=== PATIENT | male | born 1965 | race Caucasian/White ===

== ENCOUNTER → 2019-12-27 14:34 | Outpatient (BNVA) | payer OTHER, SELFPAY | PROVIDERS: Visit Provider Internal Medicine | DX: L23.7 Allergic contact dermatitis due to plants, except food (principal) | CPT/HCPCS: 99213 ==

== ENCOUNTER 2020-03-24 09:12 | Outpatient (REF) | payer OTHER, SELFPAY ==
[2020-03-24 10:01] LABS: MANUAL DIFF FLAG NO
[2020-03-24 10:03] LABS: Basophils Percent Auto 0.8 % (0-2); Eosinophils Absolute Auto 0.2 X10*3/uL (0.0-0.4); Hematocrit 38.5 % (42-52); Hemoglobin 12.8 g/dl (14.0-18.0); Imm Gran Abs Auto 0.01 X10*3/uL (0.00-0.03); Imm Gran Pct Auto 0.3 % (0.0-0.4); Lymphocytes Absolute Auto 1.4 X10*3/uL (1.2-4.9); Lymphocytes Percent Auto 37.8 % (20-40); Mean Corpuscular HGB Conc 33.2 g/dl (31.0-36.0); Mean Corpuscular Hemoglobin 33.7 pg (27.0-33.0); Mean Corpuscular Volume 101.3 fL (80-98); Mean Platelet Volume 10.4 fL (9.4-12.4); Monocytes Absolute Auto 0.3 X10*3/uL (0.1-1.2); Monocytes Percent Auto 8.7 % (2-11); Neutrophils Absolute Auto 1.8 X10*3/uL (2.0-8.3); Neutrophils Percent Auto 48.4 % (45-73); Platelet Count 198 X10*3/uL (160-400); Red Cell Distribution Width 12.9 % (11.0-16.0); White Blood Count 3.8 X10*3/uL (4.8-10.8)
[2020-03-24 10:09] LABS: Estimated Average Glucose 103 mg/dL; Hemoglobin A1c % 5.2 %
[2020-03-24 10:32] LABS: Alanine Aminotransferase 13 U/L (0-40); Albumin Level 4.2 g/dL (3.5-5.0); Alkaline Phosphatase 47 U/L (39-117); Anion Gap 10 (12-20); Aspartate Amino Transferase 17 U/L (5-37); Bilirubin Total 0.5 mg/dL (0.0-1.0); Blood Urea Nitrogen 20 mg/dL (9-16); Calcium 9.2 mg/dL (8.4-10.2); Carbon Dioxide 29 mmol/L (22-29); Chloride 107 mmol/L (96-108); Cholesterol 208 mg/dL; Estimated Glomerular Filt Rate > 60; Glucose Fasting 92 mg/dL (60-99); HDL Cholesterol 91 mg/dL; LDL Cholesterol Calculated 106 mg/dl; Potassium 4.2 mmol/l (3.3-5.1); Sodium 142 mmol/L (135-145); Total Protein 6.7 g/dL (6.5-8.0); Triglycerides 57 mg/dL
[2020-03-24 10:49] LABS: Prostate Specific Antigen Scr 1.01 ng/mL (<0.05-4.0); TSH reflex Free T4 0.89 mIU/mL (0.32-4.0)
== END 2020-03-24 09:13 | disposition home or self-care (01) ==
LOC: HO.LAB 09:12
PROVIDERS: Visit Provider Physician Assistant
DX: Z13.29 Encounter for screening for other suspected endocrine disorder (principal); Z12.5 Encounter for screening for malignant neoplasm of prostate; Z13.220 Encounter for screening for lipoid disorders; Z13.1 Encounter for screening for diabetes mellitus
CPT/HCPCS: 36415; 80053; 80061; 83036; 84153; 84443; 85025

== ENCOUNTER 2020-05-08 06:18 | Outpatient (REF) | payer OTHER, SELFPAY ==
[2020-05-08 07:11] LABS: Hematocrit 37.7 % (42-52); Hemoglobin 12.7 g/dl (14.0-18.0); Mean Corpuscular HGB Conc 33.7 g/dl (31.0-36.0); Mean Corpuscular Hemoglobin 33.7 pg (27.0-33.0); Mean Platelet Volume 10.2 fL (9.4-12.4); Platelet Count 180 X10*3/uL (160-400); Red Blood Count 3.77 X10*6/uL (4.60-5.80); Red Cell Distribution Width 12.6 % (11.0-16.0); White Blood Count 3.6 X10*3/uL (4.8-10.8)
[2020-05-08 08:08] LABS: Folate 14.5 ng/mL (> or = 4.0); Vitamin B12 277 pg/mL (200-900)
== END 2020-05-08 06:19 | disposition home or self-care (01) ==
LOC: HO.LAB 06:18
PROVIDERS: Visit Provider Physician Assistant
DX: I10 Essential (primary) hypertension (principal); D53.9 Nutritional anemia, unspecified
CPT/HCPCS: 36415; 82607; 82746; 85027

== ENCOUNTER 2020-07-18 12:54 | Outpatient (REF) | payer OTHER, SELFPAY ==
--- NOTE | 2020-07-18 15:32 | MHC.AU.ANR ---
Adult Audiological Evaluation Date of Visit: 07/18/20 Reason for Appointment: Audiological evaluation due to concern for decreased hearing. Patient reports that he has been having trouble with wax in his right ear and feels this may be to blame for his decreased hearing. He feels that he hears well most of the time. Does patient feel they have a hearing loss?: Unsure Has hearing been tested previously?: No Hearing Handicap Inventory: HHIE SCORE: 0 Based on HHIE score, patient has: No perceived hearing handicap Ear History: History of Ear Wax Buildup: Both Ears Medical History: Medical History: Headache, Migraines Otoscopy: Right Ear: Occluding cerumen. Removed some cerumen with suction, but not able to complete removal as patient was very jumpy and could not tolerate removal. Left Ear: Unremarkable Tympanometry: Tympanometry performed due to: To determine if cerumen blockage is fully occluding canal(s) Right Ear: Normal Middle Ear System (Type A) Left Ear: Normal Middle Ear System (Type A) Hearing Evaluation: Transducer(s) Used: Circumaural Headphones, Bone Conduction Method: Conventional Audiometry Stimuli Used: Pure Tones Right Ear: Description of Hearing: Mild hearing loss at 250 Hz, mild to moderate mixed hearing loss from 500-750 Hz, and a moderate sloping to profound sensorineural hearing loss from 3579-9844 Hz. Left Ear: Description of Hearing: Mild hearing loss at 250 Hz, rising to normal hearing from 500-1000 Hz, and sloping to a mild to severe sensorineural hearing loss from 8678-0593 Hz. Speech Recognition Threshold (SRT): Method Used: Monitored Live Voice Stimuli Used: Spondee Words Right Ear: 45 dBHL Left Ear: 15 dBHL Word Discrimination: Method: Recorded Lists Word Lists Used: NU-6 Right Ear: 84% at 85 dBHL Left Ear: 88% at 65 dBHL Recommendations: Audiological re-evaluation in one year. Trial with amplification is recommended. Patient plans to contact [place] [facility]. Follow-up with physician for cerumen removal. Referral to Ear, Nose, and Throat is recommended. Follow-up with ENT recommended to complete cerumen removal from the right ear and address asymmetric thresholds. Discussed hearing aids briefly and gave patient contact information for [facility] to see if he is eligible for services. Diagnosis: Primary Diagnosis: H90.3 Bilateral Sensorineural Hearing Loss Secondary Diagnosis: H61.21 Impacted Cerumen, Right Ear Services Performed: Comprehensive Audiological Evaluation (CPT 02103) Tympanometry (CPT 83813) Signature: Provider: Haven Ceballos, CCC-A
== END 2020-07-18 12:55 | disposition home or self-care (01) ==
LOC: HO.SH 12:54
PROVIDERS: Visit Provider Physician Assistant
DX: H90.3 Sensorineural hearing loss, bilateral (principal); H61.21 Impacted cerumen, right ear
CPT/HCPCS: 92557; 92567

== ENCOUNTER 2022-12-06 10:05 | Emergency (ER) | payer OTHER, SELFPAY ==
[2022-12-06 10:28] VITALS: BP 132/93; PULSE 100; RESP 18; TEMP 36.6; O2SAT 96; BMI 17.6
[2022-12-06 11:08] LABS: COVID-19 Test Negative (Negative); IDNOW Serial# BCCEAD1C
[2022-12-06 11:41] LABS: IDNOW Serial# 9DB6401D; Influenza A Negative (Negative); Influenza B2 Negative (Negative)
== END 2022-12-06 15:43 | disposition left against medical advice (07) ==
LOC: HO.ED 15:38
PROVIDERS: Emergency Provider Emergency Medicine
DX: R61 Generalized hyperhidrosis (principal); R68.83 Chills (without fever); Z20.822 Contact with and (suspected) exposure to COVID-19; Z20.828 Contact with and (suspected) exposure to other viral communicable diseases
CPT/HCPCS: 87502; 87635; 99281; 99283